=== PATIENT | female | born 1980 | race Caucasian/White ===

== ENCOUNTER 2016-11-21 10:16 | Day surgery (SDC) | payer BC ==
[~2016-11-21] VITALS: Ht 170.2 cm; Wt 71.7 kg
[~2016-11-21 10:16] MED LIST: MACROBID100 MG PO; VALTREX50 MG/ML PO; VITATRUE COMBO1 EACH PO
[2016-11-21 10:38] VITALS: BP 120/72
[2016-11-21 11:12] LABS: BASOPHIL COUNT 0.1 K/uL (0-0.1); EOSINOPHIL (%) 1.8 % (0-5); EOSINOPHIL COUNT 0.1 K/uL (0-0.3); IMMATURE GRANULOCYTE (%) 0.2 % (0.0-0.7); INSTRUMENT ABS NEUTROPHIL CT 3.7 K/uL; LYMPHOCYTE COUNT 1.9 K/uL (1.0-2.8); MCH 29.1 PG (29.0-34.0); MCHC 33.7 G/DL (30.0-36.0); MCV 86.4 FL (83-99); MEAN PLAT.VOLUME 10.3 uM^3 (9.5-12.4); MONOCYTE (%) 6.5 % (3-12); MONOCYTE COUNT 0.4 K/uL (0-0.8); NEUTROPHIL (%) 60.5 % (45-76); NEUTROPHIL COUNT 3.7 K/uL (1.8-6.4); PLATELET COUNT 213 K/uL (156-360); RBC DIS.WIDTH-CV 13.1 % (11.8-14.6); RBC DIS.WIDTH-SD 40.8 % (39-53); WHITE BLOOD COUNT 6.2 K/uL (4.1-10.2)
[2016-11-21] MEDS ORDERED: VICODIN 5-3001 EACH PO (11:15)
[2016-11-21] MEDS ORDERED: MOTRIN800 MG PO (11:15)
[2016-11-21 12:28] VITALS: BP 93/77
[2016-11-21 13:28] VITALS: BP 110/56
[2016-11-21 14:02] VITALS: BP 102/56
== END 2016-11-21 14:12 | disposition home or self-care (01) ==
LOC: SDC 10:16
PROVIDERS: Obstetrics & Gynecology
PROC: 10D17ZZ Extraction of Products of Conception, Retained, Via Natural or Artificial Opening (ICD-10-PCS; principal; 2016-11-21)
DX: O02.1 Missed abortion (principal)
CPT/HCPCS: 85025; 86850; 86900; 86901; 88305; J1100; J1885; J2405; J2790; J3010

== ENCOUNTER → 2017-08-08 | Outpatient (CLI) | payer OTHER ==
[~2017-08-08] VITALS: Ht 170.2 cm; Wt 71.7 kg
[~2017-08-08] MED LIST changes: +MOTRIN800 MG PO; +VICODIN 5-3001 EACH PO
[2017-08-08 11:48] VITALS: BP 114/61
== END | disposition home or self-care (01) ==
LOC: IVINF 11:27
DX: Z31.82 Encounter for Rh incompatibility status (principal); Z3A.28 28 weeks gestation of pregnancy; Z67.41 Type O blood, Rh negative
CPT/HCPCS: 96372; J2790

== ENCOUNTER 2017-10-05 08:32 | Inpatient (IN) | payer OTHER ==
[~2017-10-05] VITALS: Ht 170.2 cm; Wt 80.7 kg
[2017-10-05] VITALS (27 sets, daily range): BP systolic 100–150; BP diastolic 51–85
[2017-10-05 10:30] LABS: BASOPHIL (%) 0.3 % (0-1); EOSINOPHIL (%) 0.6 % (0-5); EOSINOPHIL COUNT 0.1 K/uL (0-0.3); HEMATOCRIT 31.4 % (36.0-46.0); HEMOGLOBIN 10.2 G/DL (11.9-15.5); IMMATURE GRANULOCYTE (%) 0.3 % (0.0-0.7); LYMPHOCYTE (%) 18.3 % (15-42); LYMPHOCYTE COUNT 1.6 K/uL (1.0-2.8); MCH 27.1 PG (29.0-34.0); MCHC 32.5 G/DL (30.0-36.0); MCV 83.3 FL (83-99); MONOCYTE (%) 7.7 % (3-12); MONOCYTE COUNT 0.7 K/uL (0-0.8); NEUTROPHIL (%) 72.8 % (45-76); NEUTROPHIL COUNT 6.4 K/uL (1.8-6.4); PLATELET COUNT 180 K/uL (156-360); RBC DIS.WIDTH-SD 45.1 % (39-53); RED BLOOD COUNT 3.77 M/uL (3.80-5.20); WHITE BLOOD COUNT 8.7 K/uL (4.1-10.2)
[2017-10-06 00:47] VITALS: BP 134/63
[2017-10-07 07:12] VITALS: BP 98/64
[2017-10-07] MEDS ORDERED: MOTRIN800 MG PO (09:31)
== END 2017-10-07 13:57 | disposition home or self-care (01) | DRG 775 ==
LOC: LDRP-OP 08:32 → 2WEST 08:33 → LDRP-OP 21:34 → 2WEST 21:47 → LDRP-OP 12-26 14:52
PROVIDERS: Advanced Practice Midwife
DX: O41.03X0 Oligohydramnios, third trimester, not applicable or unspecified (principal); Z3A.37 37 weeks gestation of pregnancy; Z37.0 Single live birth; O22.40 Hemorrhoids in pregnancy, unspecified trimester
CPT/HCPCS: 83030; 85025; 86850; 86900; 86901; C1755; J2405; J2790; J2795; J3010; J7120